=== PATIENT | male | born 1945 | race Caucasian/White ===

== ENCOUNTER → 2021-03-25 15:52 | Outpatient (CLI) | payer MEDICARE, SELFPAY ==
[2021-03-25 17:49] LABS: C-Reactive Protein Quant 0.7 mg/dL (<1.0); Uric Acid 4.7 mg/dL (3.5-8.5)
[2021-03-25 17:52] LABS: Rheumatoid Factor < 8.6 IU/mL (<12.0)
[2021-03-25 17:53] LABS: Erythrocyte Sedimentation Rate 17 MM/HR (0-15)
[2021-03-28 18:24] LABS: ANA Screen, IFA Negative (.)
== END ==
PROVIDERS: Referring Provider Orthopaedic Surgery; Visit Provider Orthopaedic Surgery
DX: M19.042 Primary osteoarthritis, left hand (principal); M79.642 Pain in left hand
CPT/HCPCS: 36415; 84550; 85651; 86038; 86140; 86430